=== PATIENT | female | born 1960 ===

== ENCOUNTER 2018-03-14 11:44 | Emergency (ER) | payer MEDICAID ==
[2018-03-14 11:45] VITALS: BMI 25.7
[2018-03-14 12:25] VITALS: RESP 18
--- NOTE | 2018-03-14 13:41 | ED PDOC ---
HPI: General Adult Time Seen by Provider: 03/14/18 12:37 Chief Complaint (Nursing): Abnormal Skin Integrity Chief Complaint (Provider): Abnormal Skin Integrity History Per: Patient History/Exam Limitations: no limitations Onset/Duration Of Symptoms: Days Current Symptoms Are (Timing): Still Present Additional Complaint(s): Kristal Toro is a 57 year old female with a past medical history of asthma and gastritis who is presenting to the ED for evaluation of rash to neck onset 3 weeks ago. Patient states that she developed two circular rashes to neck and denies any shortness of breath, chest pain, or throat tightness. She offers no other medical complaints at this time. PMD: Kathryn Sharif Past Medical History Reviewed: Historical Data, Nursing Documentation, Vital Signs Vital Signs: Last Vital Signs Temp 97.7 F 03/14/18 12:23 Pulse 54 L 03/14/18 12:23 Resp 18 03/14/18 12:23 BP 124/83 03/14/18 12:23 Pulse Ox 96 03/14/18 12:23 - Medical History PMH: Asthma (" A LITTLE" FROM SMOKING), Gastritis Denies: Chronic Kidney Disease - Surgical History Surgical History: Endoscopy - Family History Family History: States: Unknown Family Hx - Social History Current smoker - smoking cessation education provided: Yes (heavy) Alcohol: None Drugs: Denies - Home Medications Home Medications: Ambulatory Orders Medication Instructions Recorded Clotrimazole 1% Cream [Lotrimin 1% 1 applic TOP BID #2 tube 03/14/18 CREAM] predniSONE [predniSONE Tab] 20 mg PO DAILY #12 tab 03/14/18 - Allergies Allergies/Adverse Reactions: Allergies Allergy/AdvReac Type Severity Reaction Status Date / Time No Known Allergies Allergy Verified 06/05/16 07:29 Review of Systems ROS Statement: Except As Marked, All Systems Reviewed And Found Negative ENT: Negative for: Throat Swelling Cardiovascular: Negative for: Chest Pain Respiratory: Negative for: Shortness of Breath Skin: Positive for: Rash Physical Exam - Reviewed Nursing Documentation Reviewed: Yes Vital Signs Reviewed: Yes - Physical Exam Appears: Positive for: Well, Non-toxic, No Acute Distress Head Exam: Positive for: ATRAUMATIC, NORMAL INSPECTION, NORMOCEPHALIC Skin: Positive for: Warm, Rash. Negative for: Normal Color Eye Exam: Positive for: Normal appearance ENT: Positive for: Normal ENT Inspection Neck: Positive for: Normal, Painless ROM Cardiovascular/Chest: Positive for: Regular Rate, Rhythm Respiratory: Positive for: CNT, Normal Breath Sounds Gastrointestinal/Abdominal: Positive for: Normal Exam, Soft Back: Positive for: Normal Inspection Extremity: Positive for: Normal ROM Neurologic/Psych: Positive for: Alert, Oriented - ECG O2 Sat by Pulse Oximetry: 96 (RA) Pulse Ox Interpretation: Normal Disposition - Clinical Impression Clinical Impression: Rash - Patient ED Disposition Is Patient to be Admitted: No Counseled Patient/Family Regarding: Diagnosis, Need For Followup, Rx Given - Disposition Disposition: Routine/Home Disposition Time: 13:56 Condition: GOOD Prescriptions: Clotrimazole 1% Cream [Lotrimin 1% CREAM] 1 applic TOP BID #2 tube predniSONE [predniSONE Tab] 20 mg PO DAILY #12 tab Instructions: Skin Rash (DC) Forms: [employer] (Italian) Print Language: CYMRAES
[2018-03-14 14:24] VITALS: BP 130/78; PULSE 81; TEMP 98.1; O2SAT 98
== END 2018-03-14 14:23 | disposition home or self-care (01) ==
LOC: H.ER 11:44
DX: R21 Rash and other nonspecific skin eruption (principal); F17.200 Nicotine dependence, unspecified, uncomplicated; J45.909 Unspecified asthma, uncomplicated